=== PATIENT | male | born 1990 | race Two or more races ===

== ENCOUNTER 2017-08-03 19:03 | Emergency (ER) | payer MEDICAID ==
[~2017-08-03] VITALS: Ht 175.3 cm; Wt 72.6 kg
[2017-08-03 19:19] VITALS: BP 142/85
[2017-08-03 19:54] LABS: Basophils # (auto) 0.1 uL; Mean Corpuscular Volume 93.1 fL (80.0-100.0); Monocytes # (auto) 0.5 uL; Monocytes % (auto) 4.6 % (0.0-12.0); Nucleated Red Blood Cells % 0.1 %
[2017-08-03 19:55] LABS: Basophils % (auto) 0.6 % (0.0-2.0); Eosinophils # (auto) 0 uL; Eosinophils % (auto) 0.5 % (0.0-7.0); Hematocrit 40.9 % (41.0-53.0); Hemoglobin 14.2 g/dL (13.5-17.5); Lymphocytes # (auto) 2.9 uL; Lymphocytes % (auto) 29.1 % (10.0-50.0); Mean Corpuscular Hemoglobin 32.3 pg (28.0-32.0); Mean Corpuscular Hgb Conc. 34.7 g/dL (32.0-36.0); Neutrophils # (auto) 6.6 uL; Neutrophils % (auto) 65.2 % (37.0-80.0); Platelet Count (auto) 461 10^3/uL (140-450); Red Blood Cells 4.39 10^6/uL (4.5-5.90); Red Cell Distribution Width 13.6 % (11.8-14.3); White Blood Cell 10.1 10^3/uL (4.4-10.8)
[2017-08-03 20:12] LABS: Albumin 4.4 g/dL (3.4-5.0); BUN/Creatinine Ratio 11.1; Bilirubin, Total 0.2 mg/dL (0.2-1.0); Calcium 8.9 mg/dL (8.5-10.1); Potassium 4.1 mmol/L (3.5-5.1); Total Protein 8.8 g/dL (6.4-8.2)
== END 2017-08-03 20:49 | disposition left against medical advice (07) ==
LOC: ER 19:03
DX: R52 Pain, unspecified (principal); Z53.21 Procedure and treatment not carried out due to patient leaving prior to being seen by health care provider
CPT/HCPCS: 36415; 71046; 80053; 85025

== ENCOUNTER 2018-04-08 00:15 | Emergency (ER) | payer MEDICAID ==
[~2018-04-08] VITALS: Ht 172.7 cm; Wt 79.4 kg
[2018-04-08 00:27] VITALS: BP 100/69
== END 2018-04-08 02:25 | disposition left against medical advice (07) ==
LOC: EDBD 00:15 → ER 00:18
DX: S41.112A Laceration without foreign body of left upper arm, initial encounter (principal); Z53.21 Procedure and treatment not carried out due to patient leaving prior to being seen by health care provider; Y08.89XA Assault by other specified means, initial encounter; Y93.89 Activity, other specified; Y99.8 Other external cause status; Y92.89 Other specified places as the place of occurrence of the external cause

== ENCOUNTER → 2019-11-01 | Emergency (ER) | payer MEDICAID ==
[~2019-11-01] VITALS: Ht 175.3 cm; Wt 68.0 kg
[~2019-11-01] MED LIST: KETOROLAC TROMETH 60MG/2ML VIAL IM ONE; cefTRIAXone SOD 1,000 MG VL IM ONE
[2019-11-01 14:49] VITALS: BP 117/77
== END | disposition home or self-care (01) ==
LOC: ER 14:37
DX: K65.1 Peritoneal abscess (principal); F17.210 Nicotine dependence, cigarettes, uncomplicated; F12.10 Cannabis abuse, uncomplicated
CPT/HCPCS: 96372; 99284; J0696; J1885

== ENCOUNTER 2019-11-04 07:55 | Emergency (ER) | payer MEDICAID ==
[~2019-11-04] VITALS: Ht 175.3 cm; Wt 72.6 kg
[2019-11-04 08:27] VITALS: BP 109/70
== END 2019-11-04 09:58 | disposition home or self-care (01) ==
LOC: ER 07:55
DX: L02.214 Cutaneous abscess of groin (principal); L02.224 Furuncle of groin; F17.210 Nicotine dependence, cigarettes, uncomplicated; F12.10 Cannabis abuse, uncomplicated
CPT/HCPCS: 10060; 56405